=== PATIENT | male | born 1960 | race Caucasian/White ===

== ENCOUNTER → 2017-02-16 | Outpatient (CLI) | payer OTHER ==
[~2017-02-16] MED LIST: GADAVIST IV PRN
--- NOTE | 2017-02-16 14:35 | DIAGNOSTIC IMAGING REPORT ---
MR ANGIOGRAM OF THE NECK COMBO CLINICAL HISTORY: Strokelike symptoms. Carotid stenosis. COMPARISON STUDY: No priors. TECHNIQUE: Axial 3-D [id number] MR angiography of the neck is performed. Subsequently, following the IV administration of 8 cc of Gadavist coronal MR angiogram of the neck was performed to corroborate the findings. 3-D reformats are created and assessed. All measurements were calculated based on NASCET criteria. Subtraction imaging was utilized. FINDINGS: Visualized portions of the thoracic aorta are normal in caliber. The aortic arch demonstrates standard 3-vessel anatomy. The subclavian arteries are widely patent bilaterally. The right common carotid artery is widely patent, as are the right internal and external carotid arteries. The left common carotid artery is widely patent, as are the left internal and external carotid arteries. High-grade stenosis is suggested at the origin of the right vertebral artery. The vertebral arteries are otherwise widely patent and codominant. The partially visualized intracranial vessels at the skull base appear clear. The jugular veins appear clear. IMPRESSION: 1. The carotid arteries are widely patent bilaterally. 2. Suspect high-grade stenosis at the origin of the right vertebral artery. 3. The vertebral arteries are otherwise widely patent. Electronically signed by: Ronnell Jaeger M.D. 02/16/2017 2:33 PM Dictated Date/Time: 02/16/2017 2:30 PM
== END | disposition home or self-care (01) ==
LOC: C.MRI 13:05
PROVIDERS: ATTEND Psychiatry & Neurology Neurology
DX: I65.29 Occlusion and stenosis of unspecified carotid artery (principal); I63.9 Cerebral infarction, unspecified

== ENCOUNTER → 2017-08-21 | Outpatient (CLI) | payer OTHER ==
[2017-08-21 13:00] LABS: BASO % 0.4 %; BASO ABS # 0.03 K/uL (0-0.2); COMPLETE YES; HEMATOCRIT 46.9 % (42-52); IG% 0.1 %; LYMPH % 35.9 %; LYMPH ABS # 2.43 K/uL (1.2-3.4); MEAN CELL VOLUME 93.1 fL (80-100); MEAN CORPUSCULAR HEMOGLOBIN 32.9 pg (25-34); MEAN CORPUSCULAR HGB CONC 35.4 g/dl (32-36); MEAN PLATELET VOLUME 9.5 fL (7.4-10.4); MONO % 9.8 %; NEUT % 50.8 %; PLATELET COUNT 226 K/uL (130-400); RED BLOOD COUNT 5.04 M/uL (4.7-6.1); WHITE BLOOD COUNT 6.76 K/uL (4.8-10.8)
[2017-08-21 13:06] LABS: URINE APPEARANCE CLEAR (CLEAR); URINE BILIRUBIN NEG (NEG); URINE COLOR YELLOW; URINE EPITHELIAL CELL AUTO 0-5 /lpf (0-5); URINE NITRITE NEG (NEG); URINE PH 5.5 (4.5-7.5); URINE SPECIFIC GRAVITY 1.019 (1.000-1.030); UROBILINOGEN NEG (NEG)
[2017-08-21 13:10] LABS: MANUAL MICROSCOPIC REQUIRED? NO; REVIEW REQ? NO
[2017-08-21 13:41] LABS: BLOOD UREA NITROGEN 20 mg/dl (7-18); CREATININE 0.97 mg/dl (0.60-1.40); GLUCOSE 97 mg/dl (70-99)
[2017-08-21 13:42] LABS: ALT/SGPT 29 U/L (12-78); AST/SGOT 10 U/L (15-37); BUN/CREATININE RATIO 20.8 (10-20); CALCIUM 8.9 mg/dl (8.5-10.1); CARBON DIOXIDE 29 mmol/L (21-32); CHLORIDE 103 mmol/L (98-107); POTASSIUM 4.4 mmol/L (3.5-5.1); SODIUM 136 mmol/L (136-145)
[2017-08-21 13:43] LABS: ESTIMATED AVERAGE GLUCOSE 103 mg/dl; HA1C FLAG Normal (Normal)
[2017-08-21 13:47] LABS: CHOLESTEROL 133 mg/dl (0-200); CHOLESTEROL/HDL RATIO 2.9; HDL CHOLESTEROL 46 mg/dl; LDL CHOLESTEROL CALCULATED 75 mg/dl; PROSTATE SPECIFIC ANTIGEN 0.377 ng/ml (0.000-4.000); TRIGLYCERIDES 60 mg/dl (0-150); VERY LOW DENSITY LIPOPROT CALC 12 mg/dl
== END | disposition home or self-care (01) ==
LOC: C.LABMFLN 08:40
PROVIDERS: ATTEND Internal Medicine
DX: R39.15 Urgency of urination (principal); R73.01 Impaired fasting glucose; E78.5 Hyperlipidemia, unspecified; L40.50 Arthropathic psoriasis, unspecified

== ENCOUNTER 2019-03-14 02:13 | Observation (INO) ==
[2019-03-14] MEDS ORDERED: KETOROLAC 30 MG/ML VIAL IV STA (02:36)
[2019-03-14] MEDS ORDERED: MoRPHine SULFATE 4 MG/ML 1 ML CARP\\VIAL IV STA (02:36)
[2019-03-14] MEDS ORDERED: ONDANSETRON INJ 2 MG/ML 2 ML VIAL IV STA (02:36)
[2019-03-14] MEDS ORDERED: SODIUM CHLORIDE 0.9% 1000ML 1,000 ML IV SCH (02:45)
[2019-03-14 02:59] LABS: Basophils # (auto) 0.02 K/uL (0-0.2); Basophils % (auto) 0.2 %; Eosinophils # (auto) 0.02 K/uL (0-0.5); Eosinophils % (auto) 0.2 %; Hematocrit (blood only) 42.2 % (42-52); Hemoglobin 15.3 g/dL (14.0-18.0); Immature Granulocytes # (auto) 0.02 K/uL (0.00-0.02); Immature Granulocytes % (auto) 0.2 %; Lymphocytes # (auto) 1.03 K/uL (1.2-3.4); Lymphocytes % (auto) 8.4 %; Mean Corpuscular Hgb Conc 36.3 g/dL (32-36); Mean Corpuscular Volume 92.5 fL (80-100); Monocytes # (auto) 0.63 K/uL (0.11-0.59); Monocytes % (auto) 5.1 %; Neutrophils # (auto) 10.58 K/uL (1.4-6.5); Neutrophils % (auto) 85.9 %; Platelet Count 200 K/uL (130-400); RDW Coefficient of Variation 12.5 % (11.5-14.5); RDW Standard Deviation 42.3 fL (36.4-46.3); Red Blood Count 4.56 M/uL (4.7-6.1)
[2019-03-14 03:19] LABS: Albumin Level 3.8 gm/dl (3.4-5.0); BUN Creatinine Ratio 21.8 (10-20); Calcium 8.7 mg/dl (8.5-10.1); Creatinine Clr Calc Pharmacy 68.5 ml/min; Est GFR (African American) 77.3; Est GFR (Non-African American) 66.7; Potassium 3.5 mmol/L (3.5-5.1)
[2019-03-14 03:22] LABS: Globulin 3.8 gm/dl (2.5-4.0); Total Protein 7.6 gm/dl (6.4-8.2)
[2019-03-14 03:41] LABS: Appearance Urine Cloudy (Clear); Bacteria Urine Automated Negative (Negative); Bilirubin Urine Negative (Negative); Blood Urine 3+ (Negative); Color Urine Yellow; Epithelial Cell Urine Auto 0-5 /lpf (0-5); Glucose Urine UA Negative (Negative); Ketones Urine 1+ (Negative); Leukocyte Esterase Urine Negative (Negative); Nitrite Urine Negative (Negative); Protein Urine 2+ (Negative); RBC Urine Automated >30 /hpf (0-4); Specific Gravity Urine 1.023 (1.000-1.030); Urobilinogen Urine Negative (Negative)
[2019-03-14] MEDS ORDERED: cefTRIAXone SODIUM 2,000 MG in DEXTROSE 5% 50 ML IV STA (05:43)
--- NOTE | 2019-03-14 05:57 | History & Physical Report ---
Date of Service March 14, 2019 Assessment & Plan (1) Calculus of proximal right ureter: Patient afebrile, hemodynamically stable, nontoxic in appearance. Pain well controlled at present -Observation to medical floor -Strain urine -Follow urine culture results -NSS at 125mL/hr -Flomax 0.4mg po daily -Ceftriaxone 1gm IV q daily -Toradol PRN -Zofran PRN -Urology consultation - appreciate assistance with this case. Will keep patient NPO for now F/E/N- NSS as above, monitor electrolytes and replete as needed, NPO for now Ppx - low risk for DVT Code - Full Dispo - Obs to medical floor Present on Admission?: Yes History of Present Illness Chief Complaint: Flank pain Primary Care Provider: Magnus Sadler MD Luis Manuel Mcmillan is a pleasant 58yo male with history of psoriatic arthritis on Humira, HLP presenting with renal stone. Patient mowed the lawn yesterday afternoon then developed right sided back and flank pain. He initially thought that he may have pulled a muscle. He ate dinner and laid down. His pain increased with radiation to the abdomen and he developed some nausea. He came t o the ER and was found to have a 5-6mm obstructing right proximal ureteral stone. ER Course: Ceftriaxone, Toradol, Morphine, Zofran, NSS Allergies Allergy/AdvReac Type Severity Reaction Status Date / Time No Known Allergies Allergy Unverified 03/14/19 04:37 Home Medications Home Medications Medication Instructions Recorded Confirmed Type adalimumab [Humira Pen] 1 dose SUBCUT . EVERY 2 WEEKS 01/21/19 03/14/19 History aspirin 325 mg PO DAILY 01/21/19 03/14/19 History polyethylene glycol 3350 [Miralax] 8.5 g PO DAILY 03/14/19 03/14/19 History Past Med/Surg History Medical History Transient ischemia (Acute) Psoriatic arthropathy (Acute) Elevated blood pressure reading without diagnosis of hypertension (Acute) Dyslipidemia (Acute) Classic migraine with aura (Acute) Carotid stenosis (Acute) Arthritis (Acute) Constipation (Inactive) GERD (gastroesophageal reflux disease) Psoriatic arthritis Surgical History H/O hernia repair Family History Other Coronary heart disease Social History Feels Safe at Home: Yes Smoking Status: Never smoker Hx Alcohol Use: Yes Hx Substance Use: No Review of Systems Review of Systems: All systems reviewed & are unremarkable except as noted in HPI & below +chills Physical Exam Physical Exam: General: patient resting comfortably, NAD, non-toxic in appearance, AA&O x 4 Skin: warm, dry, intact, no rashes or lesions HEENT: NC/AT, PERRL, EOMI, anicteric sclera, conjunctiva without injection, external ear normal to inspection and nontender, nares patent, moist mucus membranes, dentition intact, no oropharyngeal lesions, neck supple, trachea midline, no LAD, no thyromegaly, no JVD Heart: +S1/S2, regular, no m/r/g Lungs: equal air entry bilaterally, no rales/rhonchi/wheezes Abd: +BS, soft, ND, no masses/organomegaly/ascites, +CVA tenderness, right sided abdominal tenderness, no rebound/guarding/peritoneal signs Ext: warm, 2+ pulses in UE/LE bilaterally, no clubbing/cyanosis or edema Neuro: nonfocal, patient AA&O x 4, speech intact, no facial droop, moving all extremities on command with equal strength 5/5 Results & Data Vital Signs (Past 12 Hours) Vital Signs Temp Pulse Pulse Resp BP BP Pulse Ox 03/14/19 04:53 81 14 149/83 H 97 03/14/19 03:25 88 16 173/95 H 100 03/14/19 02:15 36.6 C 91 H 18 162/87 H 100 Laboratory Results Lab Results 03/14/19 03/14/19 03/14/19 Range/Units 02:50 02:50 03:21 WBC 12.30 H (4.8-10.8) K/uL RBC 4.56 L (4.7-6.1) M/uL Hgb 15.3 (14.0-18.0) g/dL Hct 42.2 (42-52) % MCV 92.5 (80-100) fL MCH 33.6 (25-34) pg MCHC 36.3 H (32-36) g/dL RDW Std Deviation 42.3 (36.4-46.3) fL RDW Coeff of Brodie 12.5 (11.5-14.5) % Plt Count 200 (130-400) K/uL MPV 9.0 (7.4-10.4) fL Immature Gran % (Auto) 0.2 % Neut % (Auto) 85.9 % Lymph % (Auto) 8.4 % [place] % (Auto) 5.1 % Eos % (Auto) 0.2 % Baso % (Auto) 0.2 % Immature Gran # (Auto) 0.02 (0.00-0.02) K/uL Neut # (Auto) 10.58 H (1.4-6.5) K/uL Lymph # (Auto) 1.03 L (1.2-3.4) K/uL [place] # (Auto) 0.63 H (0.11-0.59) K/uL Eos # (Auto) 0.02 (0-0.5) K/uL Baso # (Auto) 0.02 (0-0.2) K/uL Sodium 138 (136-145) mmol/L Potassium 3.5 (3.5-5.1) mmol/L Chloride 106 (98-107) mmol/L Carbon Dioxide 21 (21-32) mmol/L Anion Gap 11.0 (3-11) BUN 26 H (7-18) mg/dl Creatinine 1.18 (0.6-1.4) mg/dl Est Cr Clr Drug Dosing 68.5 ml/min Est GFR ( Amer) 77.3 Est GFR (Non-Af Amer) 66.7 BUN/Creatinine Ratio 21.8 H (10-20) Glucose 127 H (70-99) mg/dl Calcium 8.7 (8.5-10.1) mg/dl Total Bilirubin 1.0 (0.2-1) mg/dl AST 12 L (15-37) U/L ALT 19 (12-78) U/L Alkaline Phosphatase 73 (45-117) U/L Total Protein 7.6 (6.4-8.2) gm/dl Albumin 3.8 (3.4-5.0) gm/dl Globulin 3.8 (2.5-4.0) gm/dl Albumin/Globulin Ratio 1.0 (0.9-2) Lipase 159 (73-393) U/L Urine Color Yellow Urine Appearance Cloudy A (Clear) Urine pH 6.0 (4.5-7.5) Ur Specific [place] 1.023 (1.000-1.030) Urine Protein 2+ H (Negative) Urine Glucose (UA) Negative (Negative) Urine Ketones 1+ H (Negative) Urine Blood 3+ H (Negative) Urine Nitrite Negative (Negative) Urine Bilirubin Negative (Negative) Urine Urobilinogen Negative (Negative) Ur Leukocyte Esterase Negative (Negative) Urine WBC (Auto) 1-5 (0-5) /hpf Urine RBC (Auto) >30 H (0-4) /hpf U Hyaline Cast (Auto) 1-5 (0-5) /lpf U Epithel Cells (Auto) 0-5 (0-5) /lpf Urine Bacteria (Auto) Negative (Negative) Diagnostic Findings CT Abdomen and Pelvis: obstructive right proximal ureteral stone measuring 5-6 mm. Asymmetric stranding and fluid around the right proximal ureter and kidney although perinephric infiltration is seen bilaterally. Code Status & VTE Plan Code Status Full PG Care Time/CCT Total # of Minutes Spent Total Time Spent with Patient: Total time spent is greater than 50% in coordination of care (as documented) at patient's floor/unit and/or counseling patient:
[2019-03-14 07:52] LABS: Magnesium 2.3 mg/dl (1.8-2.4); Phosphorus 4.4 mg/dl (2.5-4.9)
[2019-03-14] MEDS: SODIUM CHLORIDE 0.9% 1000ML 1,000 ML IV SCH ×2 (08:06→16:15)
[2019-03-14] MEDS: TAMSULOSIN HCL 0.4 MG CAP PO SCH (08:13)
[2019-03-14] MEDS: ACETAMINOPHEN 325 MG TAB PO PRN ×2 (08:14→23:27)
[2019-03-14] MEDS: POLYETHYLENE (MIRALAX) 17 GM PACK PO SCH (08:15)
--- NOTE | 2019-03-14 09:06 | CT Scan Report ---
CT lumbar spine wo con HISTORY: 58 years-old Male right side back pain acute right-sided low back pain COMPARISON: CT abdomen and pelvis of same day and also 01/21/2019 TECHNIQUE: Multiple axial CT images of the lumbar spine were obtained without the use of IV contrast. A dose lowering technique was used consistent with the principals of REYNALDO. FINDINGS: No acute fracture or subluxation. Mild to moderate multilevel spondylitic spurring with mostly mild m ultilevel facet arthrosis. Mild multilevel intervertebral disc space narrowing. Evaluation of the will tral canal and neuroforamina is better assessed by MRI. Mild dextroscoliosis. Vacuum disc phenomenon noted at L3-L4. Image sacrum and iliac bones appear to be intact. Please refer to separately dictated CT abdomen and pelvis were additional findings. Right proximal ureteral calculus with obstructive ur opathy again noted. IMPRESSION: 1. Degenerative changes as above without acute fracture or subluxation. 2. Obstructing right ureteral calculus with obstructive uropathy redemonstrated. Please refer to CT a bdomen and pelvis study of same day for further details. 3. Dextroscoliosis. The above report was generated using voice recognition software. It may contain grammatical, syntax o r spelling errors. Electronically signed by: Benjamín Castano M.D. 03/14/2019 9:05 AM
--- NOTE | 2019-03-14 09:12 | CT Scan Report ---
ABDOMEN AND PELVIS CT WITHOUT CONTRAST HISTORY: Acute right flank and right low back pain Right side back/flank pain TECHNIQUE: Multiaxial CT images of the abdomen and pelvis were performed without contrast. A dose lo wering technique was utilized adhering to the principles of ALARA. COMPARISON STUDY: CT abdomen and pelvis 01/21/2019 FINDINGS: Lung bases are clear. No pneumatosis or pneumoperitoneum. Imaged inferior cardiac chambers are unrema rkable. Coronary arterial calcifications are noted. Liver, spleen, pancreas and adrenal glands are un remarkable. Renal sinus cysts are noted bilaterally. Trace nonspecific left perinephric stranding. Mo derate sided hydroureteronephrosis secondary to an obstructing 6 x 4 x 7 mm calculus about the right ureteropelvic junction. Moderate perinephric and periureteral inflammation. Moderate urinary bladder distention. Prostate appears mildly enlarged. Small fat filled right inguinal hernia. Moderate calcif ied plaque of the abdominal aorta. No adenopathy. Small hiatal hernia. Colonic diverticulosis without acute diverticulitis. No bowel obstruction or bow el wall thickening. Mild to moderate formed stool noted throughout the colon. Normal appendix. Soft t issues are unremarkable. Bones appear intact. IMPRESSION: 1. Moderate right-sided hydroureteronephrosis secondary to a 6 x 4 x 7 mm calculus about the proximal right ureter at the right ureteropelvic junction. 2. No bowel obstruction or bowel wall thickening. 3. Suggested constipation. 4. Urinary bladder distention with prostamegaly. 5. Additional findings as above. Electronically signed by: Benjamín Castano M.D. 03/14/2019 9:11 AM
--- NOTE | 2019-03-14 11:30 | Urology Consultation ---
Date of Consultation March 14, 2019 Assessment & Plan (1) Calculus of proximal right ureter: Admitted with 7 mm UPJ stone on right. NO severe issues. Medication adequate for pain control. No previous stones. Discussed options. Discussed treatment vs observation vs stent. Discussed maximum expulsion therapy. Patient currently comfortable and afebrile. Will plan on monitoring for now with plans to place stent or treat if severe issues or other problems develop. All imaging was reviewed. All medical and surgical history reviewed. History of Present Illness Attending Physician: Ernie Lubin History of Present Illness Sudden onset of severe pain in flank to groin on right with waves of discomfort. No history of stones. No severe nausea. Has some mild ill feelings. Improved drastically with medications. NO major changes or bleeding. No fevers. NO vomiting. Patient currently resting comfortably after medication. Allergies Allergy/AdvReac Type Severity Reaction Status Date / Time No Known Allergies Allergy Unverified 03/14/19 04:37 Home Medications Home Medications Medication Instructions Recorded Confirmed Type adalimumab [Humira Pen] 1 dose SUBCUT . EVERY 2 WEEKS 01/21/19 03/14/19 History aspirin 325 mg PO DAILY 01/21/19 03/14/19 History polyethylene glycol 3350 [Miralax] 8.5 g PO DAILY 03/14/19 03/14/19 History Patient History Medical History Transient ischemia (Acute) Psoriatic arthropathy (Acute) Elevated blood pressure reading without diagnosis of hypertension (Acute) Dyslipidemia (Acute) Classic migraine with aura (Acute) Carotid stenosis (Acute) Arthritis (Acute) Constipation (Inactive) GERD (gastroesophageal reflux disease) Psoriatic arthritis Surgical History H/O hernia repair Family History Other Coronary heart disease Social History Preferred Language: Montene[place]in Communication Ability: Effective Beliefs That Will Affect Care: None Current Living Situation: Spouse Feels Safe at Home: Yes Smoking Status: Never smoker Second Hand Exposure: No Hx Alcohol Use: Yes Alcohol type: beer Hx Substance Use: No Review of Systems Review of Systems: All systems reviewed & are unremarkable except as noted in HPI & below +chills Physical Exam Constitutional: WD/WN, vitals as above well developed and well nourished; no acute distress and not ill appearing Eyes: no conjunctival abnormality and no scleral abnormality ENMT: Ears: no hearing impairment and no external ear abnormality Nose: no nasal discharge Mouth: no lip abnormality and motion of mouth not restricted Neck: normal visual inspection and trachea midline Respiratory: normal respiratory effort; no respiratory distress, no labored breathing and does not use accessory muscles Cardiovascular: Rate/Rhythm: not tachycardic Gastrointestinal (Abdomen): Inspection/Auscultation: abdomen normal to inspection; abdomen not distended Percussion/Palpation: abdomen soft; abdomen nontender Musculoskeletal: Head/Neck/Chest: + head abnormal to inspection, normocephalic and head atraumatic Spine: normal cervical ROM Skin: no rashes, no lesions and no jaundice Neurologic: CN's II-XI intact bilaterally and awake; not confused Psychiatric: Orientation: alert and oriented x 3 Apperance: appropriately dressed Motor Behavior: steady gait and station Genitourinary: No antony Lymphatic: no lymphadenopathy Results & Data Vital Signs (Past 12 Hours) Vital Signs Temp Pulse Pulse Pulse Resp BP BP 03/14/19 06:40 36.8 C 84 16 154/87 H 03/14/19 06:04 87 14 157/94 H 03/14/19 04:53 81 14 149/83 H 03/14/19 03:25 88 16 173/95 H 03/14/19 02:15 36.6 C 91 H 18 162/87 H Pulse Ox 03/14/19 06:40 96 03/14/19 06:04 97 03/14/19 04:53 97 03/14/19 03:25 100 03/14/19 02:15 100
--- NOTE | 2019-03-14 23:40 | Emergency Department Note ---
History of Present Illness General Chief complaint: Back Injury/Pain Stated complaint: BACK AND SIDE PAIN Time Seen by Provider: 03/14/19 02:24 History of Present Illness Maximum Pain Intensity: 2 This is a 58-year-old male presenting to the emergency department for evaluation of right-sided back pain. The patient was mowing his grass at the onset of symptoms. His discomfort was initially along the right side back and rated a 5/10. He has had several colicky episodes of 9/10 pain. The patient is now complaining of some worsening pain quadrant. Symptoms do not seem to improve or worsen with movement. He has not had fevers or chills. No difficulty using the bathroom. He has not taken anything [id number] for symptoms and rates his current discomfort a 7/10. Home Medications Home Medications Medication Instructions Recorded Confirmed Type adalimumab [Humira Pen] 1 dose SUBCUT . EVERY 2 WEEKS 01/21/19 03/14/19 History aspirin 325 mg PO DAILY 01/21/19 03/14/19 History polyethylene glycol 3350 [Miralax] 8.5 g PO DAILY 03/14/19 03/14/19 History Allergies Allergy/AdvReac Type Severity Reaction Status Date / Time No Known Allergies Allergy Unverified 03/14/19 04:37 Past Med/Surg History Medical History Transient ischemia (Acute) Psoriatic arthropathy (Acute) Elevated blood pressure reading without diagnosis of hypertension (Acute) Dyslipidemia (Acute) Classic migraine with aura (Acute) Carotid stenosis (Acute) Arthritis (Acute) Constipation (Inactive) GERD (gastroesophageal reflux disease) Psoriatic arthritis Surgical History H/O hernia repair Family History Other Coronary heart disease Social History Preferred Language: Iranian Communication Ability: Effective Beliefs That Will Affect Care: None Current Living Situation: Spouse Feels Safe at Home: Yes Smoking Status: Never smoker Second Hand Exposure: No Hx Alcohol Use: Yes Alcohol type: beer Hx Substance Use: No Review of Systems A total of 10 systems reviewed and were otherwise negative Physical Exam Vital Signs Vital Signs - 24 hr 03/14/19 02:15 03/14/19 03:25 03/14/19 04:53 Temperature 36.6 C Temperature Source Oral Sepsis Recent Fever Within 48 Hours No Sepsis Action Taken by Nursing No Action Required Pulse Rate 91 H Pulse Rate [Apical] 88 81 Respiratory Rate 18 16 14 Respiratory Effort / Characteristics Non-Labored Respiratory Depth Normal Blood Pressure 162/87 H Blood Pressure [Right Arm] 173/95 H 149/83 H Blood Pressure Mean 112 Blood Pressure Mean [Right Arm] 121 105 Pulse Oximetry 100 100 97 Oxygen Delivery Method Room Air Room Air Room Air VITALS: Vitals are noted on the nurse's note and reviewed by myself. Vital signs stable. GENERAL: Well-developed, well-nourished, white male who is in mild to moderate discomfort secondary to his stated complaint. NECK: Supple without nuchal rigidity. No lymphadenopathy. No thyromegaly. Cervical spine is nontender. HEART: Regular rate and rhythm without murmurs gallops or rubs. LUNGS: Clear to auscultation bilaterally without wheezes, rales or rhonchi. No retractions or accessory muscle use. ABDOMEN: Positive normal bowel sounds x 4. Soft, nontender, without masses or organomegaly. No guarding or rebound tenderness. MUSCULOSKELETAL: No muscle atrophy, erythema, or edema noted. Full range of motion in all extremities. No tenderness to palpation. Normal gait. Strength 5/5 throughout. NEURO: Patient was alert and oriented to person place and time. CN II through XII grossly intact. No focal neurological deficits. Deep tendon reflexes 2+ throughout. SKIN: The skin was without rashes, erythema, edema, or bruising. Capillary refi ll less than 2 seconds. Course Administered Medications Acetaminophen (Tylenol) 650 mg PO Q4H PRN PRN Reason: pain/fever Stop: 04/13/19 06:42 Last Admin: 03/14/19 23:27 Dose: 650 mg Documented by: [id number] Admin: 03/14/19 08:14 Dose: 650 mg Documented by: [id number] Polyethylene Glycol (Miralax Powder Packet) 8.5 gm PO DAILY [facility] Stop: 04/13/19 08:59 Last Admin: 03/14/19 08:15 Dose: 8.5 gm Documented by: [id number] Tamsulosin HCl (Flomax) 0.4 mg PO QAM [facility] Stop: 04/13/19 08:59 Last Admin: 03/14/19 08:13 Dose: 0.4 mg Documented by: [id number] Discontinued Medications Sodium Chloride (Nss 1000ml) 1,000 mls @ 999 mls/hr IV .Q1H1M [facility] Stop: 03/14/19 03:45 Last Infusion: 03/14/19 03:59 Dose: 0 mls/hr Documented by: [id number] Admin: 03/14/19 03:22 Dose: 999 mls/hr Documented by: [id number] Ceftriaxone Sodium 2,000 mg/ (Dextrose) 70 mls @ 100 mls/hr IV NOW STA Stop: 03/14/19 06:24 Last Infusion: 03/14/19 06:33 Dose: 0 mls/hr Documented by: [id number] Admin: 03/14/19 06:04 Dose: 100 mls/hr Documented by: [id number] Sodium Chloride (Nss 1000ml) 1,000 mls @ 125 mls/hr IV .Q8H [facility] Stop: 03/14/19 22:42 Last Admin: 03/14/19 16:15 Dose: 125 mls/hr Documented by: [id number] Infusion: 03/14/19 16:06 Dose: 125 mls/hr Documented by: [id number] Admin: 03/14/19 08:06 Dose: 125 mls/hr Documented by: [id number] Ketorolac Tromethamine (Toradol) 30 mg IV NOW STA Stop: 03/14/19 02:37 Last Admin: 03/14/19 03:22 Dose: 30 mg Documented by: [id number] Morphine Sulfate (Morphine Sulfate) 4 mg IV NOW STA Stop: 03/14/19 02:37 Last Admin: 03/14/19 03:22 Dose: 4 mg Documented by: [id number] Ondansetron HCl (Zofran) 4 mg IV NOW STA Stop: 03/14/19 02:37 Last Admin: 03/14/19 03:22 Dose: 4 mg Documented by: [id number] Medical Decision Making Differential Diagnosis Differential diagnosis: Etiologies such as muscular strain, fracture, metastatic disease, disc herniation, sciatica, epidural abscess, vertebral osteomyelitis, discitis, spinal epidural hematoma, cord compression, cauda equina/conus medullaris syndrome, aortic disease, infection, shingles, renal colic UTI/pyelonephritis, gastrointestinal, acute exacerbation of chronic back pain, as well as others were entertained. Laboratory Data Result diagrams: 03/14/19 02:50 03/14/19 02:50 Lab Results 03/14/19 03/14/19 03/14/19 Range/Units 02:50 02:50 03:21 WBC 12.30 H (4.8-10.8) K/uL RBC 4.56 L (4.7-6.1) M/uL Hgb 15.3 (14.0-18.0) g/dL Hct 42.2 (42-52) % MCV 92.5 (80-100) fL MCH 33.6 (25-34) pg MCHC 36.3 H (32-36) g/dL RDW Std Deviation 42.3 (36.4-46.3) fL RDW Coeff of Brodie 12.5 (11.5-14.5) % Plt Count 200 (130-400) K/uL MPV 9.0 (7.4-10.4) fL Immature Gran % (Auto) 0.2 % Neut % (Auto) 85.9 % Lymph % (Auto) 8.4 % [place] % (Auto) 5.1 % Eos % (Auto) 0.2 % Baso % (Auto) 0.2 % Immature Gran # (Auto) 0.02 (0.00-0.02) K/uL Neut # (Auto) 10.58 H (1.4-6.5) K/uL Lymph # (Auto) 1.03 L (1.2-3.4) K/uL [place] # (Auto) 0.63 H (0.11-0.59) K/uL Eos # (Auto) 0.02 (0-0.5) K/uL Baso # (Auto) 0.02 (0-0.2) K/uL Sodium 138 (136-145) mmol/L Potassium 3.5 (3.5-5.1) mmol/L Chloride 106 (98-107) mmol/L Carbon Dioxide 21 (21-32) mmol/L Anion Gap 11.0 (3-11) BUN 26 H (7-18) mg/dl Creatinine 1.18 (0.6-1.4) mg/dl Est Cr Clr Drug Dosing 68.5 ml/min Est GFR ( Amer) 77.3 Est GFR (Non-Af Amer) 66.7 BUN/Creatinine Ratio 21.8 H (10-20) Glucose 127 H (70-99) mg/dl Calcium 8.7 (8.5-10.1) mg/dl Total Bilirubin 1.0 (0.2-1) mg/dl AST 12 L (15-37) U/L ALT 19 (12-78) U/L Alkaline Phosphatase 73 (45-117) U/L Total Protein 7.6 (6.4-8.2) gm/dl Albumin 3.8 (3.4-5.0) gm/dl Globulin 3.8 (2.5-4.0) gm/dl Albumin/Globulin Ratio 1.0 (0.9-2) Lipase 159 (73-393) U/L Urine Color Yellow Urine Appearance Cloudy A (Clear) Urine pH 6.0 (4.5-7.5) Ur Specific [place] 1.023 (1.000-1.030) Urine Protein 2+ H (Negative) Urine Glucose (UA) Negative (Negative) Urine Ketones 1+ H (Negative) Urine Blood 3+ H (Negative) Urine Nitrite Negative (Negative) Urine Bilirubin Negative (Negative) Urine Urobilinogen Negative (Negative) Ur Leukocyte Esterase Negative (Negative) Urine WBC (Auto) 1-5 (0-5) /hpf Urine RBC (Auto) >30 H (0-4) /hpf U Hyaline Cast (Auto) 1-5 (0-5) /lpf U Epithel Cells (Auto) 0-5 (0-5) /lpf Urine Bacteria (Auto) Negative (Negative) Imaging Data Radiologist's Impression: CT lumbar spine wo con HISTORY: 58 years-old Male right side back pain acute right-sided low back pain COMPARISON: CT abdomen and pelvis of same day and also 01/21/2019 TECHNIQUE: Multiple axial CT images of the lumbar spine were obtained without the use of IV contrast. A dose lowering technique was used consistent with the principals of ALARA. FINDINGS: No acute fracture or subluxation. Mild to moderate multilevel spondylitic spurring with mostly mild multilevel facet arthrosis. Mild multilevel intervertebral disc space narrowing. Evaluation of the central canal and neuroforamina is better assessed by MRI. Mild dextroscoliosis. Vacuum disc phe nomenon noted at L3-L4. Image sacrum and iliac bones appear to be intact. Please refer to separately dictated CT abdomen and pelvis were additional findings. Right proximal ureteral calculus with obstructive uropathy again noted. IMPRESSION: 1. Degenerative changes as above without acute fracture or subluxation. 2. Obstructing right ureteral calculus with obstructive uropathy redemonstrated. Please refer to CT abdomen and pelvis study of same day for further details. 3. Dextroscoliosis. ABDOMEN AND PELVIS CT WITHOUT CONTRAST HISTORY: Acute right flank and right low back pain Right side back/flank pain TECHNIQUE: Multiaxial CT images of the abdomen and pelvis were performed without contrast. A dose lowering technique was utilized adhering to the principles of ALARA. COMPARISON STUDY: CT abdomen and pelvis 01/21/2019 FINDINGS: Lung bases are clear. No pneumatosis or pneumoperitoneum. Imaged inferior cardiac chambers are unremarkable. Coronary arterial calcifications are noted. Liver, spleen, pancreas and adrenal glands are unremarkable. Renal sinus cysts are noted bilaterally. Trace nonspecific left perinephric stranding. Moderate sided hydroureteronephrosis secondary to an obstructing 6 x 4 x 7 mm calculus about the right ureteropelvic junction. Moderate perinephric and periureteral inflammation. Moderate urinary bladder distention. Prostate appears mildly enlarged. Small fat filled right inguinal hernia. Moderate calcified plaque of the abdominal aorta. No adenopathy. Small hiatal hernia. Colonic diverticulosis without acute diverticulitis. No bowel obstruction or bowel wall thickening. Mild to moderate formed stool noted throughout the colon. Normal appendix. Soft tissues are unremarkable. Bones appear intact. IMPRESSION: 1. Moderate right-sided hydroureteronephrosis secondary to a 6 x 4 x 7 mm calculus about the proximal right ureter at the right ureteropelvic junction. 2. No bowel obstruction or bowel wall thickening. 3. Suggested constipation. 4. Urinary bladder distention with prostamegaly. 5. Additional findings as above. MDM Narrative Physical exam and history were performed. Nursing notes, EMR, and Medication List were personally reviewed. Patient appears to have right-sided back pain bringing him to the ER tonight. On examination he does not have reproducible tenderness. His discomfort does seem colicky in nature. IV access was established and labs were obtained. The patient was given IV Toradol, IV morphine, and IV Zofran for comfort. CT scan of the lumbar spine as well as the abdomen and pelvis was performed. The patient's blood work is as above and was reviewed. He does have an elevated white blood cell count of 12.3. He does not have a significant anemia, ban demia, or gross electrolyte imbalance. Urine is with blood but no obvious infection lipase and transaminases are not diagnostic. CT scans were reviewed by myself and radiology. CT scans confirm a proximal right ureteral calculi with hydronephrosis. This is concerning for an obstructing stone. I discussed the findings at length with the patient, who does not feel well for discharge home. He was given IV Rocephin here in the department to cover for the elevated white count and findings. The case was discussed with the on-call hospitalist, who agreed to evaluate the patient here in the department. Please see their dictation for further patient course, plan, and disposition. The chart was completed utilizing [employer] Speech Voice Recognition Software. Grammatical errors, random word insertions, pronoun errors, and incomplete sentences are an occasional consequence of this system due to software limitations, ambient noise, and hardware issues. Any formal questions or concerns about the content, text, or information contained within the body of this dictation should be directly addressed to the provider for clarification. . Impression & Plan Calculus of proximal right ureter Discharge Plan Visit Data *Final* Discharge Date/Time: 03/14/19 06:27 Chief Complaint: Back Injury/Pain Stated Complaint: BACK AND SIDE PAIN ED Provider: Fay Christiansen ED Midlevel Provider: Bk Figueroa Discharge Problem: Calculus of proximal right ureter Patient Disposition: Admitted As Inpatient Discharge Instructions Interventions: ED Discharge Assessment Last Done: 03/14/19 06:27
[2019-03-15] MEDS ORDERED: cefTRIAXone SODIUM 1,000 MG in DEXTROSE 5% 50 ML IV SCH (06:00)
[2019-03-15 06:42] LABS: Basophils # (auto) 0.02 K/uL (0-0.2); Basophils % (auto) 0.2 %; Eosinophils # (auto) 0.12 K/uL (0-0.5); Eosinophils % (auto) 1.4 %; Hematocrit (blood only) 42.8 % (42-52); Immature Granulocytes # (auto) 0.01 K/uL (0.00-0.02); Immature Granulocytes % (auto) 0.1 %; Lymphocytes # (auto) 1.48 K/uL (1.2-3.4); Lymphocytes % (auto) 17.4 %; Mean Corpuscular Volume 92.8 fL (80-100); Mean Platelet Volume 9.2 fL (7.4-10.4); Monocytes % (auto) 9.4 %; Neutrophils # (auto) 6.08 K/uL (1.4-6.5); Neutrophils % (auto) 71.5 %; Platelet Count 197 K/uL (130-400); RDW Coefficient of Variation 12.8 % (11.5-14.5); RDW Standard Deviation 43.2 fL (36.4-46.3); Red Blood Count 4.61 M/uL (4.7-6.1); White Blood Count 8.51 K/uL (4.8-10.8)
[2019-03-15 07:18] LABS: BUN Creatinine Ratio 15.3 (10-20); Calcium 8.5 mg/dl (8.5-10.1); Est GFR (African American) 55.1; Est GFR (Non-African American) 47.6; Potassium 4.3 mmol/L (3.5-5.1)
[2019-03-15] MEDS: ONDANSETRON INJ 2 MG/ML 2 ML VIAL IV PRN ×2 (07:59→15:47)
--- NOTE | 2019-03-15 08:00 | XRay Report ---
XR KUB/Abdomen 1 view CLINICAL HISTORY: Stone nephrocalcinosis COMPARISON STUDY: No previous studies for comparison. FINDINGS: The soft tissues, psoas shadows, renal outlines and intestinal gas pattern appear normal. T here is no evidence for bowel obstruction. No abnormal abdominal calcifications are seen. Extensive b owel content obscures the upper urinary tracts. IMPRESSION: Normal study. Nondiagnostic evaluation of the urinary tracts due to overlying bowel cont ent. The above report was generated using voice recognition software. It may contain grammatical, syntax or spelling errors. Electronically signed by: Waldo Sanabria M.D. 03/15/2019 7:59 AM
--- NOTE | 2019-03-15 08:14 | Urology Progress Note ---
Date of Service March 15, 2019 Assessment & Plan (1) Calculus of proximal right ureter: 58yo M with 7mm Right UPJ stone, moderate hydronephrosis. KUB this AM reveals non-visibility of stone due to stool. Pt has hx of constipation, improved with regular use of miralax. States he had a BM yest erday. Plan to restart IVF's. Order UC&S. Continue to strain all urine. Findings reviewed with Dr. Prince. Given his elevated creatinine and nausea the context of an obstructing right UPJ stone, will proceed with OR for cystoscopy, Right retrograde pyelogram, Right ureteroscopy, Right laser lithotripsy, stone basketing and Right ureteral stent placement today. Risks and benefits to be reviewed with patient by Dr. Prince. OR notified. Preoperative CXR and EKG ordered. Will cover with IV Ciprofloxacin preoperatively. Pt agreeable to above plan of care. Subjective 58yo M with 7mm Right UPJ stone with moderate hydronephrosis. Pain controlled overnight, able to get approx 4 hours of sleep. Currently rating pain 1/10. Developed nausea this AM, no emesis. Did require IV Zofran, which relieved symptoms. Afebrile overnight, nontoxic appearing. Having increased frequency of urination, reports strong stream. Denies dysuria or hematuria. Denies fevers/chills. Denies chest pains or shortness of breath. IVF's discontinued last evening per previous order. Creatinine elevated this AM to 1.56. Leukocytosis normalized. Review of Systems Review of Systems: All systems reviewed & are unremarkable except as noted in HPI & below Physical Exam Physical Exam: A&Ox3 RRR abd soft, nontender Mild CVA tenderness to Right side. No LE edema Results & Data Vital Signs (Past 12 Hours) Vital Signs Temp Pulse Resp BP Pulse Ox 03/15/19 07:35 36.6 C 72 18 156/80 H 99 03/14/19 23:05 36.7 C 81 16 152/89 H 97 Laboratory Results Laboratory Results - last 48 hr 03/14/19 03/14/19 03/14/19 02:50 02:50 03:21 WBC 12.30 H RBC 4.56 L Hgb 15.3 Hct 42.2 MCV 92.5 MCH 33.6 MCHC 36.3 H RDW Std Deviation 42.3 RDW Coeff of Brodie 12.5 Plt Count 200 MPV 9.0 Immature Gran % (Auto) 0.2 Neut % (Auto) 85.9 Lymph % (Auto) 8.4 [place] % (Auto) 5.1 Eos % (Auto) 0.2 Baso % (Auto) 0.2 Immature Gran # (Auto) 0.02 Neut # (Auto) 10.58 H Lymph # (Auto) 1.03 L [place] # (Auto) 0.63 H Eos # (Auto) 0.02 Baso # (Auto) 0.02 Sodium 138 Potassium 3.5 Chloride 106 Carbon Dioxide 21 Anion Gap 11.0 BUN 26 H Creatinine 1.18 Est Cr Clr Drug Dosing 68.5 Est GFR ( Amer) 77.3 Est GFR (Non-Af Amer) 66.7 BUN/Creatinine Ratio 21.8 H Glucose 127 H Calcium 8.7 Phosphorus Magnesium Total Bilirubin 1.0 AST 12 L ALT 19 Alkaline Phosphatase 73 Total Protein 7.6 Albumin 3.8 Globulin 3.8 Albumin/Globulin Ratio 1.0 Lipase 159 Urine Color Yellow Urine Appearance Cloudy A Urine pH 6.0 Ur Specific [place] 1.023 Urine Protein 2+ H Urine Glucose (UA) Negative Urine Ketones 1+ H Urine Blood 3+ H Urine Nitrite Negative Urine Bilirubin Negative Urine Urobilinogen Negative Ur Leukocyte Esterase Negative Urine WBC (Auto) 1-5 Urine RBC (Auto) >30 H U Hyaline Cast (Auto) 1-5 U Epithel Cells (Auto) 0-5 Urine Bacteria (Auto) Negative 03/14/19 03/15/19 03/15/19 07:02 06:17 06:17 WBC 8.51 RBC 4.61 L Hgb 15.0 Hct 42.8 MCV 92.8 MCH 32.5 MCHC 35.0 RDW Std Deviation 43.2 RDW Coeff of [place]die 12.8 Plt Count 197 MPV 9.2 Immature Gran % (Auto) 0.1 Neut % (Auto) 71.5 Lymph % (Auto) 17.4 [place] % (Auto) 9.4 Eos % (Auto) 1.4 Baso % (Auto) 0.2 Immature Gran # (Auto) 0.01 Neut # (Auto) 6.08 Lymph # (Auto) 1.48 [place] # (Auto) 0.80 H Eos # (Auto) 0.12 Baso # (Auto) 0.02 Sodium 141 Potassium 4.3 D Chloride 108 H Carbon Dioxide 26 Anion Gap 7.0 BUN 24 H Creatinine 1.56 H D Est Cr Clr Drug Dosing 52.0 Est GFR ( Amer) 55.1 Est GFR (Non-Af Amer) 47.6 BUN/Creatinine Ratio 15.3 Glucose 102 H Calcium 8.5 Phosphorus 4.4 Magnesium 2.3 Total Bilirubin AST ALT Alkaline Phosphatase Total Protein Albumin Globulin Albumin/Globulin Ratio Lipase Urine Color Urine Appearance Urine pH Ur Specific [place] Urine Protein Urine Glucose (UA) Urine Ketones Urine Blood Urine Nitrite Urine Bilirubin Urine Urobilinogen Ur Leukocyte Esterase Urine WBC (Auto) Urine RBC (Auto) U Hyaline Cast (Auto) U Epithel Cells (Auto) Urine Bacteria (Auto)
[2019-03-15] MEDS: TAMSULOSIN HCL 0.4 MG CAP PO SCH (09:00)
[2019-03-15] MEDS: POLYETHYLENE (MIRALAX) 17 GM PACK PO SCH (09:00)
[2019-03-15] MEDS: LACTATED RINGER'S 1,000 ML IV SCH ×3 (09:01→23:16)
[2019-03-15] MEDS ORDERED: CIPROFLOXACIN 400 MG/200 ML BAG IV SCH (09:30)
--- NOTE | 2019-03-15 09:49 | XRay Report ---
XR chest 2V routine CLINICAL HISTORY: preop preoperative evaluation COMPARISON STUDY: No previous studies for comparison. FINDINGS: The bones soft tissues and hemidiaphragms are normal. The cardiomediastinal silhouette is n ormal. The lungs are clear. The pulmonary vasculature is normal. IMPRESSION: Negative chest. The above report was generated using voice recognition software. It may contain grammatical, syntax or spelling errors. Electronically signed by: Waldo Sanabria M.D. 03/15/2019 9:47 AM
[2019-03-15] MEDS: KETOROLAC TROMETHAMINE 15 MG/ML VIAL IV PRN ×2 (11:13→19:52)
[2019-03-15] MEDS ORDERED: fentaNYL citrate 100 MCG/2 ML VIAL ONE ×2 (11:44→13:39)
[2019-03-15] MEDS ORDERED: MIDAZOLAM HCL 1 MG/ML 2ML VIAL ONE (11:45)
--- NOTE | 2019-03-15 12:09 | Anesthesiology Consultation ---
Date of Service March 15, 2019 Assessment & Plan (1) Encounter for pre-operative examination: Chart Review Chart Review: Acceptable Risk for Surgery and Patient NOT seen in Pre Admission Testing Consults Requested none History Surgery Operation Date: 03/15/19 13:05 Proposed Procedures p Cystoscopy, Right Retrograde Pyelogram, Right Ureteroscopy, Laser Lithotripsy, Right Stent Placement - Francisco Prince II, DO Height/Weight Height: 5 ft 10 in Weight: 73.1 kg Allergies Allergy/AdvReac Type Severity Reaction Status Date / Time No Known Allergies Allergy Unverified 03/14/19 04:37 Medications Home Medications Medication Instructions Recorded Confirmed Last Taken adalimumab [Humira Pen] 1 dose SUBCUT . EVERY 2 WEEKS 01/21/19 03/14/19 03/08/19 aspirin 325 mg PO DAILY 01/21/19 03/14/19 03/13/19 polyethylene glycol 3350 [Miralax] 8.5 g PO DAILY 03/14/19 03/14/19 03/13/19 Active Medications Generic Name Dose Route Start Last Admin Trade Name Freq PRN Reason Stop Dose Admin Acetaminophen 650 mg 03/14/19 06:43 03/14/19 23:27 Tylenol PO 04/13/19 06:42 650 mg Q4H PRN Administration pain/fever Lactated Ringer's 1,000 mls @ 125 mls/hr 03/15/19 08:30 03/15/19 09:01 Lr IV 04/14/19 08:29 125 mls/hr .Q8H SAMY Administration Ketorolac Tromethamine 15 mg 03/14/19 06:43 03/15/19 11:13 Toradol IV 03/19/19 06:42 15 mg Q6H PRN Administration Pain Ondansetron HCl 4 mg 03/14/19 06:43 03/15/19 07:59 Zofran IV 04/13/19 06:42 4 mg Q6H PRN Administration Nausea Polyethylene Glycol 8.5 gm 03/14/19 09:00 03/15/19 09:00 Miralax Powder Packet PO 04/13/19 08:59 8.5 gm DAILY SAMY Administration Tamsulosin HCl 0.4 mg 03/14/19 09:00 03/15/19 09:00 Flomax PO 04/13/19 08:59 0.4 mg QAM SAMY Administration NPO Date Last Intake of Fluids: 03/15/19 Time Last Intake of Fluids: 00:00 Date Last Intake of Solids: 03/14/19 Past Medical History Medical History Transient ischemia (Acute) Psoriatic arthropathy (Acute) Elevated blood pressure reading without diagnosis of hypertension (Acute) Dyslipidemia (Acute) Classic migraine with aura (Acute) Carotid stenosis (Acute) Arthritis (Acute) Constipation (Inactive) GERD (gastroesophageal reflux disease) Psoriatic arthritis Exercise / Class Metabolic Activity II 4-5 Yardwork/Stairs/Walk up hill Past Family History Family History Other Coronary heart disease Past Surgical History Surgical History H/O hernia repair Past Anesthesia History No Hx of Anesthesia Complications and No Family Hx of Anesthesia Complications History of PONV No Hx of PONV and No Hx of Motion Sickness Social History Smoking Status: Never smoker Hx Alcohol Use: Yes Alcohol type: beer alcohol intake frequency: a few times a week Hx Substance Use: No substance use type: does not use Physical Exam Vital Signs Last Vital Signs Temp 36.8 C 03/15/19 11:56 Pulse 102 H 03/15/19 11:56 Resp 18 03/15/19 11:56 BP 173/86 H 03/15/19 11:56 Pulse Ox 99 03/15/19 07:35 Testing Laboratory Results 03/15/19 06:17 03/15/19 06:17 Urine Color Yellow 03/14/19 03:21 Urine Appearance Cloudy (Clear) A 03/14/19 03:21 Urine pH 6.0 (4.5-7.5) 03/14/19 03:21 Ur Specific [place] 1.023 (1.000-1.030) 03/14/19 03:21 Urine Protein 2+ (Negative) H 03/14/19 03:21 Urine Glucose (UA) Negative (Negative) 03/14/19 03:21 Urine Ketones 1+ (Negative) H 03/14/19 03:21 Urine Nitrite Negative (Negative) 03/14/19 03:21 Ur Leukocyte Esterase Negative (Negative) 03/14/19 03:21 Urine WBC (Auto) 1-5 /hpf (0-5) 03/14/19 03:21 Urine RBC (Auto) >30 /hpf (0-4) H 03/14/19 03:21 U Hyaline Cast (Auto) 1-5 /lpf (0-5) 03/14/19 03:21 U Epithel Cells (Auto) 0-5 /lpf (0-5) 03/14/19 03:21 Urine Bacteria (Auto) Negative (Negative) 03/14/19 03:21 Electrocardiogram Date: 03/15/19 Findings: + NSR @ (75) Normal sinus rhythm Normal ECG No previous ECGs available
[2019-03-15] MEDS ORDERED: fentaNYL citrate 100 MCG/2 ML VIAL IV PRN (12:10)
[2019-03-15] MEDS ORDERED: ATROPINE SULFATE 0.1 MG/ML 10ML SYR IV PRN (12:10)
[2019-03-15] MEDS ORDERED: HYDROmorphone INJ 1 MG/ML SYRINGE IV PRN (12:10)
[2019-03-15] MEDS ORDERED: ePHEDrine sulfate 50 MG/ML AMP IV PRN (12:10)
[2019-03-15] MEDS ORDERED: ONDANSETRON INJ 2 MG/ML 2 ML VIAL IV PRN (12:10)
[2019-03-15] MEDS ORDERED: IOTHALAMATE MEGLUMINE II 17.2% 250 ML VIAL ONE (12:23)
[2019-03-15] MEDS ORDERED: SCOPOLAMINE 1.5 MG TDSY ONE (12:26)
[2019-03-15] MEDS ORDERED: PHENYLEPHRINE 100MCG/ML 5ML SYR ONE (13:16)
--- NOTE | 2019-03-15 13:33 | Operative Report ---
Post Operative Report Pre & Post Diagnosis Operation Date: 03/15/19 13:05 Pre-Op Diagnosis: Right Ureteral Stone Post-Op Diagnosis: Right Ureteral Stone Procedure Operation Date: 03/15/19 13:05 Actual Procedures p Cystoscopy, Right Ureteral Dilation, Right Retrograde Pyelogram, Right Ureteroscopy, Laser Lithotripsy, stone basket extraction, Right Stent Placement(Right) - Francisco Prince II, DO Surgeon Francisco Prince, II, DO [employer] Job Titles None Estimated Blood Loss 1 Findings Consistent with Post-Op Diagnosis Specimens Stone right ureter Drains 6 Fr Multilength on right. Anesthesia Type General Complications none Disposition Disposition: Recovery Room Indications Patient with obstructing stone and LOLI. Risks and benefits discussed at length. Description of Procedure Patient was consented and brought back to the operating room. Patient was placed under anesthesia in the supine position and moved to the dorsal lithotomy position. Patient was prepped and draped in the regular sterile fashion. A time out was completed. A 30degree Cystoscope was placed into the bladder and the entire bladder was examined. The UO's were identified. The UO was cannulized with a catheter and a retrograde pyelogram was completed. A wire was then placed. The ureter was then dilated. A ureteral access sheath and second safety wire was placed. The flexible ureteroscope was taken into the ureter. The entire ureter and renal pelvis were examined. The stones were identified. A laser fiber was selected and the stones were pulverized to dust and small fragments. Larger fragments were grasped and removed and sent for analysis. The entire area was once again examined. No residual large fragments or areas of concern were noted. The scope was slowly removed with the wire left in place. Contrast was placed through the scope for a pyelogram to assist in stent placement. The entire ureter was examined as the scope was slowly removed. No obstructions or other areas of concern were noted. With the wire in place, a 6 Fr Double J stent was placed. It was confirmed with fluoroscopy. With the stent in place, the bladder was emptied. The scope was removed. The patient was cleaned, aroused from anesthesia, and transferred to the pacu in stable condition having tolerated the procedure well with no complications. I was present and participated in all aspects of the procedure. The patient will be monitored in the PACU until transferred. I attest to the content of the Intraoperative Record and any orders documented therein. Any exceptions are noted below.
--- NOTE | 2019-03-15 13:41 | Fluoroscopy Report ---
FL retrograde includes kub CLINICAL HISTORY: RT STENT PLACEMENT AND RETROGRADE COMPARISON STUDY: CT of the abdomen and pelvis March 14, 2019. KUB March 15, 2019. FLUOROSCOPY TIME: 2 minutes and 17 seconds. FLUOROSCOPIC IMAGES: 6. FINDINGS: These images demonstrate cannulation of the right ureter and right retrograde exam. There i s right hydronephrosis. Subsequent images demonstrate placement of a ureteral stent. Stent is appropr iately positioned. IMPRESSION: Fluoroscopic images from right retrograde exam with ureteral stent insertion. Electronically signed by: Drew Larson M.D. 03/15/2019 1:40 PM
[2019-03-15] MEDS ORDERED: ONDANSETRON INJ 2 MG/ML 2 ML VIAL ONE (13:46)
[2019-03-15] MEDS ORDERED: PROPOFOL IV EMULSION 10 MG/ML 20 ML VIAL IV ONE (13:46)
[2019-03-15] MEDS ORDERED: DEXAMETHASONE SOD INJ 4 MG/ML VIAL ONE (13:46)
[2019-03-15] MEDS ORDERED: LIDOCAINE HCL 2% 2 ML VIAL/AMP(20MG/ML) INFIL ONE (13:46)
[2019-03-15] MEDS ORDERED: PROMETHAZINE HCL 12.5 MG in SODIUM CHLORIDE 0.9% 50 ML IV PRN (14:22)
--- NOTE | 2019-03-15 17:09 | Anesthesiology Progress Note ---
Date of Service March 15, 2019 Anesthesia Post Procedure Vital Signs Vital Signs: Temp Pulse Pulse Resp BP Pulse Ox 03/15/19 16:57 36.5 C 83 17 136/62 97 03/15/19 16:05 86 17 161/73 H 97 03/15/19 15:31 36.5 C 73 18 157/82 H 98 03/15/19 15:05 36.5 C 73 14 167/86 H 97 03/15/19 14:41 37.2 C 95 03/15/19 14:40 79 18 154/93 H 95 03/15/19 14:30 72 17 154/80 H 97 03/15/19 14:20 74 17 160/86 H 96 03/15/19 14:10 84 14 160/87 H 97 03/15/19 14:00 76 14 151/83 H 97 03/15/19 13:50 75 14 146/82 H 100 03/15/19 13:43 36.8 C 86 12 137/82 100 03/15/19 11:56 36.8 C 102 H 18 173/86 H 03/15/19 07:35 36.6 C 72 18 156/80 H 99 03/14/19 23:05 36.7 C 81 16 152/89 H 97 Pain Intensity Right Flank: Pain Intensity: 1 Medial Groin: Pain Intensity: 3 Transfer of Care Handoff Completed per policy Notes Mental Status: alert / awake / arousable and participated in evaluation Patient Amnestic to Procedure: Yes Nausea / Vomiting: adequately controlled Pain: adequately controlled Airway Patency, RR, SpO2: stable & adequate BP & HR: stable & adequate Hydration State: stable & adequate Anesthetic Complications: no major complications apparent and Pt Satisfied with anesthetic care
--- NOTE | 2019-03-15 22:57 | Hospitalist Progress Note ---
Date of Service March 15, 2019 Assessment & Plan (1) Calculus of proximal right ureter: Patient afebrile, hemodynamically stable, nontoxic in appearance. Pain well controlled at present -Observation to medical floor S/P stent placement. -Flomax 0.4mg po daily. Received Cipro for procedure. -Toradol PRN -Zofran PRN -Urology consultation - appreciate assistance with this case. -Will discharge patient in AM. Ppx - low risk for DVT Code - Full Dispo - Obs to medical floor (2) Acute renal failure: Creatinine mildly elevated. Will recheck bmp in AM. Subjective Patient reports doing well. He does notice some moderate discomfort after placement of his stent on his right side. But it is better than what it was the day prior. Review of Systems Review of Systems: All systems reviewed & are unremarkable except as noted in HPI & below Physical Exam Physical Exam: General: patient resting comfortably, NAD, non-toxic in appearance, AA&O x 4 Skin: warm, dry, intact, no rashes or lesions HEENT: NC/AT, PERRL, EOMI, anicteric sclera, no oropharyngeal lesions, neck supple, trachea midline, no LAD, no thyromegaly, no JVD Heart: +S1/S2, regular, no m/r/g Lungs: equal air entry bilaterally, no rales/rhonchi/wheezes Abd: +BS, soft, ND, no masses/organomegaly/ascites, +CVA tenderness, decreased right sided abdominal tenderness, no rebound/guarding/peritoneal signs Ext: warm, 2+ pulses in UE/LE bilaterally, no clubbing/cyanosis or edema Neuro: nonfocal, patient AA&O x 4, speech intact, no facial droop, moving all extremities Results & Data Vital Signs (Past 12 Hours) Vital Signs Temp Pulse Pulse Resp BP Pulse Ox 03/15/19 18:54 36.8 C 60 17 137/74 96 03/15/19 16:57 36.5 C 83 17 136/62 97 03/15/19 16:05 86 17 161/73 H 97 03/15/19 15:31 36.5 C 73 18 157/82 H 98 03/15/19 15:05 36.5 C 73 14 167/86 H 97 03/15/19 14:41 37.2 C 95 03/15/19 14:40 79 18 154/93 H 95 03/15/19 14:30 72 17 154/80 H 97 03/15/19 14:20 74 17 160/86 H 96 03/15/19 14:10 84 14 160/87 H 97 03/15/19 14:00 76 14 151/83 H 97 03/15/19 13:50 75 14 146/82 H 100 03/15/19 13:43 36.8 C 86 12 137/82 100 03/15/19 11:56 36.8 C 102 H 18 173/86 H PG Care Time/CCT Total # of Minutes Spent Total Time Spent with Patient: Total time spent is greater than 50% in coordination of care (as documented) at patient's floor/unit and/or counseling patient:
[2019-03-16] MEDS: LACTATED RINGER'S 1,000 ML IV SCH (07:03)
[2019-03-16 07:08] LABS: Calcium 8.7 mg/dl (8.5-10.1); Creatinine Clr Calc Pharmacy 80.3 ml/min; Est GFR (African American) 93.3; Est GFR (Non-African American) 80.5; Potassium 4.4 mmol/L (3.5-5.1)
[2019-03-16] MEDS: POLYETHYLENE (MIRALAX) 17 GM PACK PO SCH (08:45)
[2019-03-16] MEDS: TAMSULOSIN HCL 0.4 MG CAP PO SCH (08:45)
--- NOTE | 2019-03-16 10:11 | Anesthesiology Progress Note ---
Date of Service March 16, 2019 Anesthesia Post Procedure Vital Signs Vital Signs: Temp Pulse Pulse Resp BP Pulse Ox 03/16/19 07:22 36.6 C 53 L 14 149/77 H 99 03/16/19 04:11 36.5 C 75 16 155/85 H 99 03/15/19 23:20 36.5 C 60 16 125/79 98 03/15/19 18:54 36.8 C 60 17 137/74 96 03/15/19 16:57 36.5 C 83 17 136/62 97 03/15/19 16:05 86 17 161/73 H 97 03/15/19 15:31 36.5 C 73 18 157/82 H 98 03/15/19 15:05 36.5 C 73 14 167/86 H 97 03/15/19 14:41 37.2 C 95 03/15/19 14:40 79 18 154/93 H 95 03/15/19 14:30 72 17 154/80 H 97 03/15/19 14:20 74 17 160/86 H 96 03/15/19 14:10 84 14 160/87 H 97 03/15/19 14:00 76 14 151/83 H 97 03/15/19 13:50 75 14 146/82 H 100 03/15/19 13:43 36.8 C 86 12 137/82 100 03/15/19 11:56 36.8 C 102 H 18 173/86 H Pain Intensity Right Flank: Pain Intensity: 1 Medial Groin: Pain Intensity: 3 Transfer of Care Handoff Completed per policy Notes Mental Status: alert / awake / arousable and participated in evaluation Patient Amnestic to Procedure: Yes Nausea / Vomiting: adequately controlled Pain: adequately controlled Airway Patency, RR, SpO2: stable & adequate BP & HR: stable & adequate Hydration State: stable & adequate Anesthetic Complications: no major complications apparent and Pt Satisfied with anesthetic care
--- NOTE | 2019-03-16 16:33 | Discharge Summary ---
Date of Service March 16, 2019 Admission HPI Per Admitting Provider Luis Manuel Mcmillan is a pleasant 58yo male with history of psoriatic arthritis on Humira, HLP presenting with renal stone. Patient mowed the lawn yesterday afternoon then developed right sided back and flank pain. He initially thought that he may have pulled a muscle. He ate dinner and laid down. His pain increased with radiation to the abdomen and he developed some nausea. He came to the ER and was found to have a 5-6mm obstructing right proximal ureteral stone. ER Course: Ceftriaxone, Toradol, Morphine, Zofran, NSS Principal Diagnosis ureterolithiasis Discharge Data Allergies Allergy/AdvReac Type Severity Reaction Status Date / Time No Known Allergies Allergy Unverified 03/14/19 04:37 Consultations 03/14/19 05:41 ED Decision to Admit Stat 03/14/19 06:43 Consult Urology Routine Procedures Performed Operation Date: 03/15/19 13:05 Actual Procedures p Cystoscopy, Right Ureteral Dilation, Right Retrograde Pyelogram, Right Ureteroscopy, Laser Lithotripsy, (Right) - Francisco Prince II, DO s Right Stent Placement(Right) - Francisco Prince II, DO Abnormal lab results 03/16/19 Range/Units 05:39 Chloride 109 H (98-107) mmol/L Glucose 114 H (70-99) mg/dl Laboratory Results - last 24 hr 03/15/19 03/16/19 Unknown 05:39 Sodium 143 Potassium 4.4 Chloride 109 H Carbon Dioxide 27 Anion Gap 6.0 BUN 17 Creatinine 1.01 Est Cr Clr Drug Dosing 80.3 Est GFR ( Amer) 93.3 Est GFR (Non-Af Amer) 80.5 BUN/Creatinine Ratio 17.0 Glucose 114 H Calcium 8.7 Stone Source Pending Stone Weight Pending Stone Composition Pending Stone Composition 2 Pending Major Stone Nidus Pending Ordered Studies 03/14/19 02:36 CT abd pelvis wo con Urgent CT lumbar spine wo con Urgent 03/15/19 12:00 FL retrograde includes kub Routine Hospital Course (1) Calculus of proximal right ureter: now stable s/p scope and stenting -stable for home -outpt urology f/u Ppx - low risk for DVT Code - Full Dispo - stable for home (2) Acute renal failure: elevated creatinine - now improved stable for home. outpt BMP w PCP Total Time Total Time Spent Total Time Spent (In Minutes): <30 Discharge Plan Discharge Items Patient Disposition: Home - Self-Care Reason For Visit: OBSTRUCTING STONE Discharge Diagnosis: kidney stone Discharge Goals: Decrease discomfort and Therapeutic intervention Activity: Resume your previous activity Non-emergency contact: Primary Care Provider and Urologist Call non-emergency contact if: you have any medication questions, your symptoms worsen, your pain is not controlled, your pain is worsening and your temperature is above 101 Follow-up/Referrals: Magnus Sadler MD [Primary Care Provider] - 03/22/19 11:30 am (Please, follow up at Dr. Sadler's office with his associate, Elana FLORES, on MondayMarch 22 at 11:30 am. *If you need to change this appointment, call the office at [phone].) Diet: Regular Addtl Provider Instructions: Instructions from your Urology Team: Please take all medications as prescribed and keep all follow-ups as scheduled. Please call our office at [phone] with any questions, concerns or need to reschedule appointments for any reason. We are happy to assist you. Our office is located at [address] [place] [address]. While you have a ureteral stent in place: Some discomfort is normal. Certain movements may trigger pain or a feeling that you need to urinate. You may also feel mild soreness or pressure before or during urination. These symptoms should go away a few days after the stent is removed. Your urine may be slightly pink or red. This is due to bleeding caused by minor irritation from the stent. This may happen on and off while you have the stent, it is not harmful and is to be expected. Medication to help minimize discomfort or bladder spasms, or to prevent infection may be prescribed. Take this as directed. Drink plenty of fluids to help flush out your urinary tract. If you go home with a catheter, wash with soapy water and a fresh washcloth t wice daily. We recommend mild bar soap such as Dial or Dove. How long will you need a stent? An appointment should already be made for you for stent removal, unless directed otherwise. The stent is often taken out after the blockage in the ureter is treated or the ureter has healed. This may take 1-2 weeks, or longer. If a stent is needed for a longer period of time, it may need to be exchanged every few months. Likely prior to your followup appointment you will be asked to get an X-ray, please complete this the night before or morning of your appointment. When to call [facility] Urology at [phone]: Your urine contains heavy blood clots You are constantly leaking urine Fever of 101F or higher, chills, nausea, or vomiting Your pain is not relieved with medication The end of the stent comes out of your urethra Prescriptions: New ibuprofen 600 mg tablet 600 mg PO TID PRN (Reason: pain) Qty: 20 RF: 0 Continued polyethylene glycol 3350 [Miralax] 17 gram/dose Powder 8.5 g PO DAILY RF: 0 aspirin 325 mg tablet 325 mg PO DAILY RF: 0 Humira Pen 40 mg/0.8 mL pen injector kit 1 dose subcut . EVERY 2 WEEKS RF: 0 Stand-Alone Forms: [facility] Discharge Orders: Discharge Order (Routine); Ordered 03/16/19 Ordered By: Paul Cummings Admission Data Admit Date/Time: 03/14/19 05:53 Attending Provider: Paul Cummings Admit Provider: Sushma Rush Primary Care Provider: Magnus Sadler Other Providers: Sushma Rush ; Murali Murphy ; Clinton Torres ; Speedy Robles I. ; Rodney Meyer ; Ev Fraire ; Francisco Prince II ; Berenice Valladares ; Ernie Lubin Service: Medical Other Interventions: Discharge Summary Assessment (RN) Last Done: 03/16/19 10:44 DC Date/Time DO NOT enter until pt leaves facility: 03/16/19 11:10
[2019-03-22 10:07] LABS: Component 2 DNR; Source Ureter
== END 2019-03-16 11:10 | disposition home or self-care (01) ==
LOC: ED 02:13 → 3N 02:13 → SUATTDRO 05:53 → 3N 06:27